=== PATIENT | female | born 1985 | race African-American/Black ===

== ENCOUNTER 2022-10-13 15:47 | Emergency (ER) | payer OTHER ==
[~2022-10-13] VITALS: Ht 170.2 cm; Wt 108.9 kg
[2022-10-13 16:01] VITALS: BP_SYST 141
[2022-10-13 16:06] VITALS: BP_SYST 141
[2022-10-13] MEDS ORDERED: AMOX875T2 PO (16:22)
[2022-10-13] MEDS ORDERED: OFLO5DRO5 RIGHT EAR (16:22)
[2022-10-13] MEDS ORDERED: IBUP-1969 PO (16:22)
[2022-10-13] MEDS ORDERED: PSEU-313 PO (16:22)
[2022-10-13] MEDS ORDERED: HYDR-3917 PO (16:22)
[2022-10-13] MEDS ORDERED: TRAM50TA2 PO (16:32)
== END 2022-10-13 16:37 | disposition home or self-care (01) ==
LOC: SED 15:47
DX: H66.91 Otitis media, unspecified, right ear (principal); H72.91 Unspecified perforation of tympanic membrane, right ear; R42 Dizziness and giddiness; Z79.899 Other long term (current) drug therapy
CPT/HCPCS: 99283